=== PATIENT | male | born 1955 | race Caucasian/White ===

== ENCOUNTER 2018-12-06 14:24 | Emergency (ER) | payer BC ==
[2018-12-06 15:31] LABS: #Basophils 0.1 thou/uL (0.0-0.2); #Eosinphils 0.4 thou/uL (0.0-0.7); #Lymphocytes 2.8 thou/uL (1.20-3.40); #Monocytes 0.5 thou/uL (0.11-0.59); #Neutrophils 3.4 thou/uL (1.40-6.50); %Basophils 1.1 % (0.0-1.0); %Eosinophils 5.6 % (0.0-10.0); %Lymphocytes 38.9 % (21.0-51.0); %Monocytes 7.2 % (0.0-10.0); %Neutrophils 47.2 % (42.0-75.0); Hemoglobin 14.2 g/dL (14.0-18.0); Mean Corpuscular HGB CONC 34.7 g/dL (32.0-36.0); Mean Corpuscular Hemoglobin 32.8 pg (27.0-31.0); Mean Corpuscular Volume 94.5 fL (78.0-98.0); Mean Platelet Volume 7.5 fL (7.4-10.4); Platelet Count 210 thou/uL (130-400); RBC Distribution Width 12.7 % (11.5-14.5); Red Blood Cell (RBC) Count 4.33 mill/uL (4.70-6.10); White Blood Cell (WBC) Count 7.2 thou/uL (4.8-10.8)
[2018-12-06 15:52] LABS: ALT (SGPT) 20 U/L (8-55); AST (SGOT) 18 U/L (5-34); Albumin 4.1 g/dL (3.4-4.8); Alkaline Phosphatase 53 U/L (40-150); Anion Gap 14 mmol/L (10-20); BUN (Urea Nitrogen) 14 mg/dL (8.4-25.7); Bilirubin, Total 0.3 mg/dL (0.2-1.2); Calc. Creatinine Clearance 0 mL/min (70-130); Calcium 9.1 mg/dL (7.8-10.44); Carbon Dioxide 21 mmol/L (23-31); Chloride 109 mmol/L (98-107); Estimated GFR-MDRD Greater than 90; Globulin 2.6 g/dL (2.4-3.5); Glucose 112 mg/dL (80-115); Potassium 3.1 mmol/L (3.5-5.1); Protein, Total 6.7 g/dL (5.8-8.1); Sodium 141 mmol/L (136-145)
[2018-12-06] MEDS ORDERED: Ketorolac Tromethamine 30 MG/ML VIAL ONE (16:13)
[2018-12-06] MEDS ORDERED: Morphine 4 MG/ML VIAL ONE (16:13)
[2018-12-06] MEDS ORDERED: Potassium Chloride 20 MEQ TAB ONE (16:52)
--- NOTE | 2018-12-06 17:00 | RAD ---
EXAM: Right shoulder 3 views: HISTORY: Right shoulder pain COMPARISON: None FINDINGS: Degenerative changes. No acute fracture or dislocation or other significant acute osseous abnormality. IMPRESSION: No significant acute process.
== END 2018-12-06 17:46 | disposition home or self-care (01) ==
LOC: ERS 14:24
DX: E87.6 Hypokalemia (principal); M25.511 Pain in right shoulder; K21.9 Gastro-esophageal reflux disease without esophagitis; N40.0 Benign prostatic hyperplasia without lower urinary tract symptoms; Z79.82 Long term (current) use of aspirin; Z79.899 Other long term (current) drug therapy
CPT/HCPCS: 36415; 80053; 84484; 85025; 93005; 96372; J1885; J2270

== ENCOUNTER 2019-07-15 19:05 | Observation (INO) | payer BC ==
[2019-07-15] MEDS ORDERED: Nitroglycerin 2% Ointment 1 INCH/1 GM Packet ONE (19:48)
[2019-07-15] MEDS ORDERED: Aspirin Chewable 81 MG TAB ONE (19:48)
[2019-07-15 19:50] LABS: #Basophils 0.1 thou/uL (0.0-0.2); #Eosinphils 0.2 thou/uL (0.0-0.7); #Lymphocytes 4.5 thou/uL (1.20-3.40); #Monocytes 0.9 thou/uL (0.11-0.59); %Basophils 0.9 % (0.0-1.0); %Eosinophils 1.5 % (0.0-10.0); %Lymphocytes 38.6 % (21.0-51.0); %Monocytes 7.7 % (0.0-10.0); %Neutrophils 51.3 % (42.0-75.0); Mean Corpuscular HGB CONC 33.4 g/dL (32.0-36.0); Mean Corpuscular Hemoglobin 31.2 pg (27.0-31.0); Mean Corpuscular Volume 93.4 fL (78.0-98.0); Platelet Count 211 thou/uL (130-400); RBC Distribution Width 12.1 % (11.5-14.5); Red Blood Cell (RBC) Count 4.82 mill/uL (4.70-6.10); White Blood Cell (WBC) Count 11.7 thou/uL (4.8-10.8)
[2019-07-15] MEDS ORDERED: Lorazepam 2 MG/ML VIAL ONE (19:57)
--- NOTE | 2019-07-15 20:00 | RAD ---
XR Chest 1 View Portable History: Chest pain Comparison: Radiograph January 02, 2017 Findings: Heart size is enlarged. No pneumothorax. No effusion. No confluent airspace consolidation. No acute osseous abnormality. Bilateral distal clavicular osteolysis. Impression: No acute intrathoracic abnormality.
[2019-07-15 20:12] LABS: ALT (SGPT) 32 U/L (8-55); AST (SGOT) 22 U/L (5-34); Albumin 4.5 g/dL (3.4-4.8); Alkaline Phosphatase 55 U/L (40-110); Anion Gap 15 mmol/L (10-20); BUN (Urea Nitrogen) 15 mg/dL (8.4-25.7); Bilirubin, Total 0.3 mg/dL (0.2-1.2); CK (CPK) 107 U/L (30-200); Calc. Creatinine Clearance 0 mL/min (70-130); Calcium 9.4 mg/dL (7.8-10.44); Carbon Dioxide 26 mmol/L (23-31); Chloride 103 mmol/L (98-107); Estimated GFR-MDRD 88; Globulin 2.7 g/dL (2.4-3.5); Glucose 87 mg/dL (80-115); Lipase 43 U/L (8-78); Potassium 3.2 mmol/L (3.5-5.1); Protein, Total 7.2 g/dL (5.8-8.1); Sodium 141 mmol/L (136-145)
[2019-07-15] MEDS ORDERED: Nitroglycerin 0.4 MG TAB (25 Tab Bottle) PO PRN (20:32)
[2019-07-15] MEDS ORDERED: Acetaminophen 500 MG TAB ONE (20:40)
--- NOTE | 2019-07-15 21:14 | PDOC.EVN ---
Event Note - Event Note Event Note: [id number]
[2019-07-15] MEDS ORDERED: Labetalol HCl 100 MG/20 ML VIAL SLOW IVP PRN (21:15)
[2019-07-15] MEDS ORDERED: Morphine 4 MG/ML VIAL ONE (22:14)
[2019-07-15 22:50] LABS: Bilirubin Negative (Negative); Blood, Urine Negative (Negative); Clarity Clear (Clear); Glucose, Urine (Dipstick) Normal (Negative); Leukocyte Negative Leu/uL (Negative); Nitrite Negative (Negative); Protein, Urine (Dipstick) Negative (Neg-Trace); Urobilinogen Normal mg/dL (Less than 2)
[2019-07-15 23:00] LABS: Amphetamine Not Detected (NotDetected); Barbiturates Screen Not Detected (NotDetected); Benzodiazepine Screen Detected (NotDetected); Cocaine Metabolite Screen Not Detected (NotDetected); Medtox Control Line Valid? VALID (VALID); Medtox Reader # READER 1; Methadone Not Detected (NotDetected); Methamphetamine Not Detected (NotDetected); Opiate Screen Detected (NotDetected); Oxycodone Screen Not Detected (NotDetected); Phencyclidine (PCP) Not Detected (NotDetected); THC/Cannabinoid Screen Not Detected (NotDetected); Tricyclic Screen Not Detected (NotDetected)
[2019-07-15 23:09] VITALS: BMI 30.4
[2019-07-15 23:10] LABS: Acetaminophen Less than 6.0 mcg/mL (10.0-30.0); Alcohol Less than 10 mg/dL (Less than 10); Salicylate Less than 8.0 mg/dL (15.0-30.0)
[2019-07-15 23:14] LABS: Troponin I Less than 0.010 ng/mL (< 0.028)
--- NOTE | 2019-07-16 00:19 | HP ---
CHIEF COMPLAINT: Chest pain. HISTORY OF PRESENT ILLNESS: Mr. Peralta is a 63-year-old male with past medical history of hypertension, GERD, hyperlipidemia, among others; presented to the emergency room with chest pain and elevated blood pressure associated with some lightheadedness. Chest pain is radiating to the back. No aggravating or relieving factors. The patient was seen by PCP this morning and has normal lab work done. The patient also has prior history of pancreatitis and he was concerned about that. In the emergency room workup, lipase is normal, 43. Chest x-ray, no acute finding. Initial troponin is negative. EKG, no acute changes. Potassium is 3.2. The patient is being admitted to hospital for further management. PAST MEDICAL HISTORY: 1. GERD. 2. Pancreatitis. 3. Hypertension. 4. Hyperlipidemia. 5. Benign prostatic hypertrophy. PAST SURGICAL HISTORY: 1. Cholecystectomy. 2. Shoulder and ankle surgery. FAMILY HISTORY: Reviewed and noncontributory. HOME MEDICATIONS: Please see home medication reconciliation form for updated medications. SOCIAL HISTORY: The patient drinks socially. Currently uses marijuana. He smokes cigarettes daily about one pack a day. ALLERGIES: NO KNOWN ALLERGIES. PHYSICAL EXAMINATION: GENERAL: The patient is awake, alert, in mild distress. VITAL SIGNS: Blood pressure elevated 197/110, pulse 65, respiratory rate is 18, temperature 97.6. HEAD AND NECK: Normocephalic, atraumatic. NECK: Supple. No JVD. CHEST: Fair bilateral air entry. HEART: S1, S2, regular. ABDOMEN: Soft, nontender. Bowel sounds present. NEUROLOGIC: Awake, alert, oriented x3. PSYCHIATRIC: Normal mood. EXTREMITIES: No clubbing or cyanosis. MUSCULOSKELETAL: No joint deformity. No tenderness. GENITOURINARY: No suprapubic tenderness. No flank tenderness. LABORATORY DATA: As mentioned above in history of present illness. ASSESSMENT: 1. Acute chest pain, rule out acute coronary syndrome. 2. Hypertensive urgency. 3. Hyperlipidemia. 4. Benign prostatic hypertrophy. 5. Cigarette smoker. PLAN: 1. Admit. 2. Tele monitoring. 3. Aspirin. 4. Monitor and control blood pressure. 5. Serial troponins. 6. 2D echo. 7. Cardiac stress test. 8. Consult Cardiology in a.m. for evaluation and further recommendations. 9. Reconcile home medications. 10. DVT prophylaxis as appropriate. 11. Expected length of stay at least 1 midnight if patient is stable and further workup negative. Job ID: [id number]
[2019-07-16] MEDS ORDERED: Potassium Chloride 20 MEQ TAB PO SCH (01:00)
[2019-07-16 02:10] LABS: Troponin I Less than 0.010 ng/mL (< 0.028)
[2019-07-16] MEDS: Heparin 5,000 UNITS/ML VIAL SC SCH ×3 (03:11→14:50)
[2019-07-16] MEDS ORDERED: Aspirin 325 mg Enteric Coated Tablet PO SCH (09:00)
[2019-07-16] MEDS ORDERED: traMADol HCl 50 MG TAB PO PRN (09:22)
[2019-07-16] MEDS ORDERED: PROVENTIL INHALER 6.7 G (200 INHALATIONS) INH PRN (09:22)
[2019-07-16] MEDS ORDERED: ALPRAZolam 0.5 MG TAB PO PRN (09:22)
[2019-07-16] MEDS ORDERED: Regadenoson 0.4 MG/5 ML SYRINGE ONE (09:33)
[2019-07-16] MEDS ORDERED: Sodium Chloride 0.65% Nasal 44 ML BOT EA NARE PRN (10:08)
[2019-07-16 15:44] VITALS: BP 127/75; TEMP 97.4
--- NOTE | 2019-07-16 15:49 | NM ---
MYOCARDIAL PERFUSION SCAN WITH SPECT IMAGING: HISTORY: Chest pain. TECHNIQUE/FINDINGS: Examination is performed using 28.3 mCi 99m-technetium sestamibi as a stress-only exam. This shows a normal distribution of radiopharmaceutical. WALL MOTION: There is symmetric contractility to the ventricle. LEFT VENTRICULAR EJECTION FRACTION: The calculated left ventricular ejection fraction is 62%. IMPRESSION: Unremarkable stress myocardial perfusion scan. POS: ARUNA
--- NOTE | 2019-07-16 16:32 | PDOC.HOSPP ---
- Subjective Subjective: Seen and examined. Patient describes one week plus of epigastric discomfort for which he has been taking Pepto-Bismol daily. He has had black stools from the Pepto-Bismol. Denies overt blood he bowel movements. His hemoglobin is 15 on arrival. Patient was concerned about his blood pressure being over 200 systolic prior to arrival. Will monitor blood pressure overnight and if you remain stable home in a.m. If there is any overt black or blood in bowel movement we may require gastroenterology and put. I will trend is hemoglobin to monitor for blood loss. - Objective Vital Signs & Weight: Vital Signs (12 hours) Temp Pulse Resp BP Pulse Ox 07/16/19 15:24 97.4 F L 80 20 127/75 97 07/16/19 07:43 97.5 F L 69 18 131/83 100 Weight Weight 218 lb Result Diagrams: 07/15/19 19:41 07/15/19 19:41 Radiology Reviewed by me: Yes Hospitalist ROS - Review of Systems All other systems reviewed; all pertinent +/- noted in HPI/Subj - Medication Medications: Active Medications Generic Name Dose Route Start Last Admin Trade Name Freq PRN Reason Stop Dose Admin Alprazolam 0.5 mg 07/16/19 09:22 07/16/19 11:10 Xanax PO 0.5 mg DAILYPRN PRN Administration Anxiety Heparin Sodium (Porcine) 5,000 units 07/15/19 21:00 07/16/19 14:50 Heparin SC Not Given TID RENEE Sodium Chloride 0 ml 07/16/19 10:08 07/16/19 11:10 [place] Nasal [place] 0.65% EA NARE 1 puff PRN PRN Administration CONGESTION - Exam General Appearance: NAD, awake alert Eye: anicteric sclera ENT: normocephalic atraumatic, moist mucosa Neck: supple, symmetric, no lymphadenopathy Heart: no murmur, no gallops, no rubs Respiratory: CTAB, no wheezes, no rales, no ronchi, normal chest expansion Gastrointestinal: soft, non-tender, non-distended, normal bowel sounds, no palpable masses, no guarding, no rigidity Extremities: no edema Skin: no lesions, no rashes Neurological: cranial nerve grossly intact, no focal deficits Musculoskeletal: generalized weakness Psychiatric: normal affect, normal behavior, A&O x 3 Hosp A/P (1) GERD (gastroesophageal reflux disease) Code(s): K21.9 - GASTRO-ESOPHAGEAL REFLUX DISEASE WITHOUT ESOPHAGITIS Status: Acute (2) Chest pain Code(s): R07.9 - CHEST PAIN, UNSPECIFIED Status: Acute (3) Hyperlipidemia Code(s): E78.5 - HYPERLIPIDEMIA, UNSPECIFIED Status: Acute Qualifiers: Hyperlipidemia type: mixed hyperlipidemia Qualified Code(s): E78.2 - Mixed hyperlipidemia (4) Hypertension Code(s): I10 - ESSENTIAL (PRIMARY) HYPERTENSION Status: Acute Qualifiers: Hypertension type: essential hypertension Qualified Code(s): I10 - Essential (primary) hypertension - Plan Plan: medical unit 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 Will monitor for acute black or blood in bowel movement CBC in a.m. to monitor for blood loss if epigastric discomfort persists he may require gastroenterology input blood pressure monitoring, patient states that his blood pressure was nearly 200 systolic at home adjust blood pressure medications is able G.I. prophylaxis DVT prophylaxis continue other home medications as able
--- NOTE | 2019-07-16 17:31 | CON ---
DATE OF CONSULTATION: 07/16/2019 REASON FOR CONSULTATION: Hypertension and atypical chest pain. HISTORY OF PRESENT ILLNESS: Mr. Peralta is a very pleasant 63-year-old gentleman, who recently presented with elevated blood pressure. He did have chest pain, but was fleeting up. Not felt to be significant. He does have a history of tobacco abuse. His main issue was elevated blood pressure. Please see Dr. Wright's full consultation for details. PHYSICAL EXAMINATION: GENERAL: Patient is a pleasant male, who is in no acute distress. The patient appears their stated age. VITAL SIGNS: Blood pressure 127/75, pulse 80, temperature 97.4. NEUROLOGIC: The patient is alert and oriented x3 with no focal neurologic deficits. HEENT: Sclerae without icterus. Mouth has moist mucous membranes with normal pallor. NECK: No JVD. Carotid upstroke brisk. No bruits bilaterally. LUNGS: Clear to auscultation with unlabored respirations. BACK: No scoliosis or kyphosis. CARDIAC: Regular rate and rhythm with normal S1 and S2. No S3 or S4 noted. No significant rubs, murmurs, thrills, or gallops noted throughout the precordium. PMI is not displaced. There is no parasternal heave. ABDOMEN: Soft, nontender, nondistended. No peritoneal signs present. No hepatosplenomegaly. No abnormal striae. EXTREMITIES: 2+ femoral and 2+ dorsalis pedis pulses. No cyanosis, clubbing, or edema. SKIN: No gross abnormalities. PERTINENT LABORATORY DATA: CK troponin negative. Hemoglobin 15, creatinine 0.87. EKG, normal sinus rhythm, normal EKG. IMPRESSION: 1. Atypical chest pain. 2. Hypertension. 3. Tobacco abuse. RECOMMENDATIONS: Recent stress test was negative for ischemia. LVEF is normal. Recommend discontinuing aspirin. Continue amlodipine. May also benefit from SERGEY inhibitor therapy or ARB. Otherwise, I have no further recommendations. Plan is to follow up with Mr. Peralta as an outpatient. Job ID: [id number]
[2019-07-16] MEDS ORDERED: Atorvastatin Calcium 10 MG TAB PO SCH (21:00)
[2019-07-16] MEDS ORDERED: Lisinopril 20 MG TAB PO SCH (21:00)
[2019-07-16] MEDS ORDERED: Montelukast Sodium 10 mg Tablet PO SCH (21:00)
[2019-07-16] MEDS ORDERED: Tamsulosin HCl 0.4 MG CAP PO SCH (21:00)
[2019-07-16] MEDS ORDERED: FLU VACC QS2019-20(6MOS UP)/PF 60 MCG/0.5 ML SYRINGE IM ONE (21:00)
--- NOTE | 2019-07-16 23:46 | DIS ---
DATE OF ADMISSION: 07/15/2019 DATE OF DISCHARGE: 07/16/2019 REASON FOR HOSPITALIZATION: Chest pain. SIGNIFICANT FINDINGS: There is no acute cardiothoracic process. PROCEDURES PERFORMED AND TREATMENTS RENDERED: The patient was admitted to the medical unit with telemetry and monitored on continuous telemetry throughout his hospitalization and there was no acute events. The patient went for nuclear medicine stress test on 07/16/2019 and there was no reversible ischemia identified. The patient was seen and evaluated by Cardiology, who recommended the patient safe for discharge with close followup in the outpatient setting. It seems as though patient's symptoms are related to indigestion/reflux. The patient does have a known history of gastroesophageal reflux disease for which he takes Protonix. I recommended to the patient that he follow up with his primary care physician in the next 5 to 7 days and may benefit from outpatient evaluation with Gastroenterology. The patient has been having symptoms over the past week for which he has been taking Pepto-Bismol and this did give him symptomatic relief. Because of the Pepto-Bismol, the patient was having some dark stools as it is normal and common with Pepto-Bismol use. The patient has been taking his Protonix as directed and I educated him on taking it in the morning on empty stomach and then waiting 20 or 30 minutes prior to eating or drinking. The patient states that he will take Protonix this way from now on. The patient did not have any signs of acute blood loss throughout his hospitalization and his hemoglobin was 15. There is no acute blood loss anemia. The patient was recommended safe for discharge with close followup in the outpatient setting with primary care physician and Cardiology. CONDITION ON DISCHARGE: Stable. SPECIFIC INSTRUCTIONS FOR THE PATIENT/FAMILY: 1. The patient recommended to follow up with primary care physician in the next 5 to 7 days. 2. The patient is recommended to follow up with Cardiology in the next 2 to 3 weeks. 3. The patient is recommended to take all medications as directed, to be re-evaluated by primary care physician in the next 5 to 7 days. 4. The patient is recommended to return to acute care hospital immediately if signs or symptoms return, worsen, or any other new symptoms occur. TIME SPENT: Greater than 37 minutes spent coordinating care and discharge process for this patient. Job ID: [id number]
--- NOTE | 2019-07-17 06:31 | CON ---
DATE OF CONSULTATION: HISTORY OF PRESENT ILLNESS: Loi Peralta is a 63-year-old male, who presented to the ED yesterday for elevated blood pressures in the 200s over 130s at home. The patient states that one week ago he had more alcohol than usual and subsequently developed some mid upper back pain with nausea and diarrhea with black stools. The patient reports he went to see his PCP yesterday morning and had lab work done as he has a history of pancreatitis. His lipase was normal. He states he checked his blood pressure later in the day and it was in the 200s over 130s. He reported he was having some lightheadedness and had some intermittent left-sided and substernal chest pain. He was not able to describe the quality of the duration of the chest pain. No aggravating or alleviating factors. When he arrived to the ER, his highest recorded blood pressure was 209/96 and 197/117. The patient had an echocardiogram done in December 2016 that showed diastolic dysfunction. The patient reports that he has had a stress about 15 years ago and has seen Dr. Mendez in the past. PAST MEDICAL HISTORY: Significant for, 1. Hypertension. 2. GERD. 3. Hyperlipidemia. 4. History of pancreatitis. 5. BPH. SOCIAL HISTORY: The patient smokes one pack per day for 42 years, [id number] history. The patient has occasional alcohol use and reports using marijuana about once every 2 weeks. PAST SURGICAL HISTORY: Cholecystectomy, shoulder and ankle surgery. ALLERGIES: NO KNOWN DRUG ALLERGIES. MEDICATIONS: 1. Lisinopril 20 mg p.o. b.i.d. 2. Alprazolam 0.5 mg p.o. daily p.r.n. 3. Aspirin 325 mg p.o. daily. 4. Albuterol sulfate one puff b.i.d. p.r.n. 5. Tramadol 1 tablet p.o. b.i.d. p.r.n. 6. Pantoprazole 40 mg p.o. daily. 7. Atorvastatin 10 mg p.o. at bedtime. 8. Tamsulosin 0.4 mg p.o. at bedtime. 9. Amlodipine 5 mg p.o. daily. 10. Montelukast sodium 10 mg p.o. at bedtime. FAMILY HISTORY: The patient reports an AL in his father at 80 years of age. REVIEW OF SYSTEMS: GENERAL: The patient denies fevers or chills, but he reports headache after receiving nitroglycerin. HEENT: Denies vision changes, eye pain, auditory changes, ear pain; reports rhinorrhea, congestion, sore throat. CARDIAC: Reports chest pain and occasional palpitations. LUNGS: Denies cough, shortness of breath or wheezing. ABDOMEN: Reports nausea. Denies vomiting. Reports black stools while taking Pepto-Bismol. Denies grossly bloody stools. GI: Denies hematuria. Denies decreased stream. MUSCULOSKELETAL: Denies joint pain or swelling. NEUROLOGIC: Denies weakness or numbness. PSYCHIATRIC: Reports anxiety and depression. PHYSICAL EXAMINATION: VITAL SIGNS: Temperature 97.5, pulse 69, blood pressure 99/58, respirations 18, and 100% on room air. GENERAL: Alert, well-appearing male, in no acute distress, lying in the bed. HEENT: Head, normocephalic and atraumatic. Eyes; PERRLA, extraocular motions intact. Mouth veneers, no pharyngeal exudate or edema. NECK: Supple. Trachea midline. CARDIAC: Regular rate and rhythm. No murmurs, rubs or gallops. LUNGS: Diffuse expiratory wheezing in all lung [place]. ABDOMEN: Soft, positive bowel sounds. Mild mid epigastric tenderness. No rebound or guarding. NEUROLOGIC: Cranial nerves 2 through 12 grossly intact, strength 5+ bilaterally in upper and lower extremities. EXTREMITIES: Pulses 2+ in upper and lower extremities. No edema. SKIN: No rashes or bruising. PSYCHIATRIC: Alert and oriented. LABORATORY RESULTS: White blood count 11.7. D-dimer negative. CMP significant for potassium of 3.2. Troponins negative x3. BNP 13.7. Lipase 43. UA shows no signs of infection. IMPRESSION AND PLAN: 1. Atypical chest pain, rule out acute coronary syndrome. EKG shows normal sinus rhythm. Chest x-ray shows no acute intrathoracic abnormality. Troponin negative x3. HEART score of 3. Plan for repeat stress today. 2. Heart failure with preserved ejection fraction. History of diastolic dysfunction seen on last echo 01/06/2017. Repeat echocardiogram pending. 3. Hypertension. Blood pressure has now improved back to normal. Continue lisinopril and amlodipine. 4. History of pancreatitis. The patient's lipase was within normal limits. 5. Benign prostatic hyperplasia. Continue home medications. 6. Hyperlipidemia. Continue atorvastatin. May consider increasing dose based on the patient's ASCVD risk score. 7. Tobacco abuse. Counseled cessation. 8. Concern for chronic obstructive pulmonary disease. The patient has significant [id number] history and is a current tobacco abuser. Consider outpatient workup for COPD. The patient has diffuse wheezing on exam today. 9. Hypokalemia. Potassium 3.2. Continue to monitor. 10. Likely MDD and SARAH. Recommend outpatient work up and treatment. Plans were discussed with Dr. Mallory prior to signing this note. Job ID: [id number] [id number]
[2019-07-17] MEDS ORDERED: Amlodipine 5 MG TAB PO SCH (09:00)
[2019-07-17] MEDS ORDERED: Aspirin 325 MG TAB PO SCH (09:00)
== END 2019-07-16 18:16 | disposition home or self-care (01) ==
LOC: ERS 19:05 → 2SW 22:57
PROVIDERS: ADMIT Internal Medicine; ATTEND Internal Medicine
DX: I16.0 Hypertensive urgency (principal); I10 Essential (primary) hypertension; K21.9 Gastro-esophageal reflux disease without esophagitis; E78.5 Hyperlipidemia, unspecified; R07.9 Chest pain, unspecified; N40.0 Benign prostatic hyperplasia without lower urinary tract symptoms; F17.210 Nicotine dependence, cigarettes, uncomplicated; I11.0 Hypertensive heart disease with heart failure; I50.30 Unspecified diastolic (congestive) heart failure; E87.6 Hypokalemia; Z79.82 Long term (current) use of aspirin; Z79.899 Other long term (current) drug therapy
CPT/HCPCS: 36415; 71045; 78452; 80053; 80306; 80307; 81003; 82550; 83690; 83880; 84484; 85025; 85379; 93005; 93017; 93306; 96361; 96372; 96374; 96375; A9500; G0378; J1644; J2060; J2270; J2785

== ENCOUNTER 2023-12-03 08:02 | Outpatient (CLI) | payer MEDICARE | END 2023-12-03 08:03 | disposition home or self-care (01) | LOC: LABBT 08:02 | PROVIDERS: ATTEND Neurological Surgery | DX: Z01.810 Encounter for preprocedural cardiovascular examination (principal); M48.061 Spinal stenosis, lumbar region without neurogenic claudication; M71.38 Other bursal cyst, other site | CPT/HCPCS: 93005; 93010 ==

== ENCOUNTER 2023-12-10 05:41 | Day surgery (SDC) | payer MEDICARE ==
[2023-12-03 08:43] VITALS: BMI 27.8
[2023-12-10] MEDS ORDERED: EPINEPHrine 1 MG/ML VIAL ONE (06:11)
[2023-12-10] MEDS ORDERED: Thrombin 5000 UNITS/5 ML VIAL ONE (06:11)
[2023-12-10] MEDS ORDERED: Bupivacaine PF 0.5% 30 ML VIAL ONE (06:11)
[2023-12-10] MEDS ORDERED: Rocuronium Bromide 10 MG/ML (10ML VIAL) ONE (06:23)
[2023-12-10] MEDS ORDERED: Lidocaine 1% PF 5 ML VIAL ONE (06:23)
[2023-12-10] MEDS ORDERED: PROPOFOL 20 ML ONE (06:23)
[2023-12-10] MEDS ORDERED: fentaNYL PF 100 MCG/2 ML SYRINGE ONE (06:23)
[2023-12-10] MEDS ORDERED: CEFAZOLIN 2 GM VIAL ONE ×2 (06:46→11:21)
[2023-12-10] MEDS ORDERED: Midazolam HCl 2 mg/2 ml Vial ONE (06:46)
[2023-12-10] MEDS ORDERED: Sodium Chloride 0.9% 100 ML ONE ×2 (06:47→11:21)
[2023-12-10] MEDS ORDERED: Ondansetron PF 4 MG/2 ML Vial ONE (07:47)
[2023-12-10] MEDS ORDERED: Dexamethasone 20 MG/5 ML VIAL ONE (07:47)
[2023-12-10] MEDS ORDERED: Ketorolac Tromethamine 30 MG (1 mL) VIAL ONE (07:47)
[2023-12-10] MEDS ORDERED: ePHEDrine Sulfate 50 MG/10 ML VIAL ONE (07:59)
[2023-12-10] MEDS ORDERED: SUGAMMADEX SODIUM 200 MG/2 ML VIAL ONE (08:24)
[2023-12-10] MEDS ORDERED: HYDROmorphone 2 MG/ML VIAL ONE (08:28)
[2023-12-10] MEDS ORDERED: fentaNYL 50 mcg/mL 1 mL Vial ONE ×3 (09:01→09:45)
[2023-12-10] MEDS ORDERED: Tamsulosin HCl 0.4 MG CAP ONE (09:14)
[2023-12-10] MEDS ORDERED: HYDROcodone/Acetaminophen 5/325 mg Tablet ONE (11:49)
== END 2023-12-10 12:00 | disposition home or self-care (01) ==
LOC: SDC 05:41
PROVIDERS: ATTEND Neurological Surgery
PROC: 01NB0ZZ Release Lumbar Nerve, Open Approach (ICD-10-PCS; principal; 2023-12-10)
DX: M48.061 Spinal stenosis, lumbar region without neurogenic claudication (principal); M54.16 Radiculopathy, lumbar region; M71.38 Other bursal cyst, other site; K21.9 Gastro-esophageal reflux disease without esophagitis; I10 Essential (primary) hypertension; E78.5 Hyperlipidemia, unspecified; Z90.49 Acquired absence of other specified parts of digestive tract; Z90.89 Acquired absence of other organs; Z79.82 Long term (current) use of aspirin; Z79.899 Other long term (current) drug therapy
CPT/HCPCS: 63047; 63048; 63267; J0171; J0665; J1100; J1170; J1885; J2250; J2405; J2704; J3010; J3490

== ENCOUNTER 2025-05-17 10:21 | Outpatient (CLI) | payer OTHER ==
[2025-05-20 10:50] LABS: Estimated GFR - POC 65.0
== END 2025-05-17 10:22 | disposition home or self-care (01) ==
LOC: MRI 10:21
PROVIDERS: ATTEND Internal Medicine
DX: R41.82 Altered mental status, unspecified (principal); R90.82 White matter disease, unspecified; I73.9 Peripheral vascular disease, unspecified
CPT/HCPCS: 36415; 70553; 76376; 82565